=== PATIENT | male | born 1980 | race Caucasian/White ===

== ENCOUNTER 2023-06-08 23:53 | Inpatient (IN) | payer OTHER ==
[2023-06-09 01:51] VITALS: BMI 41.1
[2023-06-09] MEDS ORDERED: BENZONATATE 200 MG CAPSULE PO PRN (02:14)
[2023-06-09] MEDS ORDERED: IBUPROFEN 400 MG TABLET (FP) PO PRN (02:14)
[2023-06-09] MEDS ORDERED: NICOTINE POLACRILEX 2 MG LOZENGE BC PRN (02:14)
[2023-06-09] MEDS ORDERED: LOPERAMIDE HCL 2 MG CAPSULE PO PRN (02:14)
[2023-06-09] MEDS ORDERED: NALOXONE HCL 0.4 MG/ML VIAL IM PRN (02:14)
[2023-06-09] MEDS ORDERED: BENZOCAINE/MENTHOL (CHLORASEPTIC ) LOZENGE MM PRN (02:14)
[2023-06-09] MEDS ORDERED: ACETAMINOPHEN 325 MG TABLET (FP) PO PRN (02:14)
[2023-06-09] MEDS ORDERED: hydrOXYzine PAMOATE 25 MG CAPSULE (FP) PO PRN (02:14)
[2023-06-09] MEDS ORDERED: MAGNESIUM HYDROX 2400MG/30ML ORAL SUSPENSION 30 ML CUP PO PRN (02:14)
[2023-06-09] MEDS ORDERED: POLYETHYLENE GLYCOL (HEALTHYLAX) 3350 17 GM PACKET PO PRN (02:14)
[2023-06-09] MEDS ORDERED: guaiFENesin 600 MG TABLET.ER (FP) PO PRN (02:14)
[2023-06-09] MEDS ORDERED: DICYCLOMINE HCL 10 MG CAPSULE PO PRN (02:14)
[2023-06-09] MEDS ORDERED: BISMUTH SUBSALICYLATE 524 MG/30 ML PO PRN (02:14)
[2023-06-09] MEDS ORDERED: NALOXONE HCL (KLOXXADO) 8 MG SPRAY NS PRN (02:14)
[2023-06-09] MEDS ORDERED: ONDANSETRON *ODT* 4 MG TABLET SL PRN (02:14)
[2023-06-09] MEDS: PRENATAL VITAMINS W/ FOLIC ACID TABLET (FP) PO SCH (10:55)
[2023-06-09] MEDS: NICOTINE 21 MG/24 HOURS TOPICAL PATCH TD SCH (10:55)
[2023-06-09] MEDS: BACITRACIN 0.9 GM PACKET TP SCH (10:55)
[2023-06-09] MEDS: diazePAM 5 MG TABLET PO SCH (11:09)
[2023-06-09] MEDS: METHOCARBAMOL 500 MG TABLET PO PRN (11:14)
[2023-06-09] MEDS: BUPRENORPHINE 8 MG TAB.SUBL SL SCH (11:25)
[2023-06-09 15:03] LABS: HEMATOCRIT 34.8 % (35.4-49); HEMOGLOBIN 10.9 GM/dL (11.7-16.9); MCH 20.2 pg (25.7-33.7); MCHC 31.4 g/dl (32.0-35.9); MEAN CELL VOLUME 64.3 fl (80-96); MEAN PLT VOLUME 7.3 fl (7.5-11.1); PLATELET COUNT 340 10^3/uL (134-434); RBC 5.42 M/mm3 (4.00-5.60); RDW 16.8 % (11.9-15.9); WHITE BLOOD COUNT 5.3 K/mm3 (4.0-10.0)
[2023-06-09 15:04] LABS: CHLORIDE 105 mmol/L (98-107); POTASSIUM 3.3 mmol/L (3.5-5.1); SODIUM 143 mmol/L (136-145)
[2023-06-09 15:06] LABS: CALCIUM 8.4 mg/dL (8.5-10.1)
[2023-06-09 15:07] LABS: ALBUMIN 2.9 g/dl (3.4-5.0); ANION GAP 7 mmol/L (4-13); BLOOD UREA NITROGEN 8.6 mg/dL (7-18); CO2 31 mmol/L (21-32); GLUCOSE,RANDOM 137 mg/dL (74-106)
[2023-06-09 15:10] LABS: CREATININE 0.6 mg/dL (0.55-1.3); SGOT/AST 74 U/L (15-37); SGPT/ALT 68 U/L (13-61)
[2023-06-09 15:11] LABS: BILIRUBIN,TOTAL 0.7 mg/dL (0.2-1)
[2023-06-09 15:12] LABS: TOT PROT 6.2 g/dl (6.4-8.2)
[2023-06-09 15:16] LABS: ALK PHOS 87 U/L (45-117)
[2023-06-09] MEDS: POTASSIUM CHLORIDE ORAL LIQUID 20 MEQ/15 ML PO ONE (15:52)
[2023-06-09] MEDS: THIAMINE HCL 100 MG TABLET (FP) PO SCH (22:54)
[2023-06-09] MEDS: MELATONIN 5 MG TABLETS PO SCH (22:54)
[2023-06-09] MEDS: POTASSIUM CHLORIDE ORAL LIQUID 20 MEQ/15 ML PO SCH (22:54)
[2023-06-10] MEDS: ASPIRIN 81 MG CHEWABLE TABLETS PO SCH (13:28)
[2023-06-10] MEDS: IBUPROFEN 600 MG TABLET (FP) PO PRN (13:29)
[2023-06-10] MEDS: MAG HYDROX/AL HYDROX/SIMETH 30 ML UNIT-DOSE CUP PO PRN (17:08)
[2023-06-10] MEDS: diazePAM 5 MG TABLET PO PRN (19:31)
[2023-06-11] MEDS: diazePAM 5 MG TABLET PO SCH (06:01)
[2023-06-11] MEDS: PANTOPRAZOLE 40 MG TABLET PO SCH (10:39)
[2023-06-11 11:37] LABS: POTASSIUM 4.1 mmol/L (3.5-5.1)
[2023-06-11 11:38] LABS: CALCIUM 8.5 mg/dL (8.5-10.1)
[2023-06-11 11:39] LABS: BLOOD UREA NITROGEN 8.5 mg/dL (7-18)
[2023-06-11 11:42] LABS: CREATININE 0.7 mg/dL (0.55-1.3)
[2023-06-11 16:55] VITALS: RESP 18
[2023-06-12] MEDS: diazePAM 5 MG TABLET PO SCH (06:08)
[2023-06-12 09:19] VITALS: TEMP 97.8
[2023-06-12 13:22] VITALS: BP 133/87; PULSE 80
[2023-06-13] MEDS ORDERED: diazePAM 5 MG TABLET PO ONE (06:00)
== END 2023-06-12 17:39 | disposition left against medical advice (07) | DRG 770 ==
LOC: YASAS 23:53 → Y3N 06-09 03:16
PROVIDERS: ADMIT Allergy & Immunology; ATTEND Surgery
PROC: HZ2ZZZZ Detoxification Services for Substance Abuse Treatment (ICD-10-PCS; principal; 2023-06-09)
DX: F11.23 Opioid dependence with withdrawal (principal); F13.230 Sedative, hypnotic or anxiolytic dependence with withdrawal, uncomplicated; F14.20 Cocaine dependence, uncomplicated; F17.210 Nicotine dependence, cigarettes, uncomplicated; F31.9 Bipolar disorder, unspecified; I10 Essential (primary) hypertension; J45.909 Unspecified asthma, uncomplicated; K21.9 Gastro-esophageal reflux disease without esophagitis; M54.50 Low back pain, unspecified; G89.29 Other chronic pain; Z88.8 Allergy status to other drugs, medicaments and biological substances
CPT/HCPCS: 36415; 80048; 80053; 80307; 85027; 86780; 87635; 93005; 93010